=== PATIENT | male | born 1995 | race Asian ===

== ENCOUNTER 2016-10-06 08:36 | Emergency (ER) | payer OTHER ==
[~2016-10-06] VITALS: Ht 180.3 cm; Wt 81.6 kg
[2016-10-06 08:42] VITALS: TEMP 97.9
[2016-10-06 09:30] VITALS: BP 130/70
== END 2016-10-06 09:30 | disposition home or self-care (01) ==
LOC: ED 08:36
PROC: 0HQ1XZZ Repair Face Skin, External Approach (ICD-10-PCS; principal; 2016-10-06)
DX: R55 Syncope and collapse (principal); S01.112A Laceration without foreign body of left eyelid and periocular area, initial encounter; W19.XXXA Unspecified fall, initial encounter; Y92.239 Unspecified place in hospital as the place of occurrence of the external cause
CPT/HCPCS: 82962; 99282

== ENCOUNTER 2019-06-20 08:01 | Outpatient (CLI) | payer OTHER | END 2019-06-20 08:11 | disposition short-term general hospital (02) | LOC: AMB 08:01 | DX: S01.81XA Laceration without foreign body of other part of head, initial encounter (principal); V89.2XXA Person injured in unspecified motor-vehicle accident, traffic, initial encounter; Y92.89 Other specified places as the place of occurrence of the external cause | CPT/HCPCS: A0425; A0429 ==

== ENCOUNTER 2019-06-20 08:19 | Emergency (ER) | payer OTHER ==
[~2019-06-20] VITALS: Ht 182.9 cm; Wt 95.3 kg
[2019-06-20 08:19] VITALS: TEMP 99.7
[2019-06-20 09:07] LABS: PLATELET COUNT 224 K/uL (142-355); POTASSIUM 3.5 mmol/L (3.6-5.2)
[2019-06-20 10:42] VITALS: BP 160/77
== END 2019-06-20 10:43 | disposition home or self-care (01) ==
LOC: ED 08:19
PROVIDERS: Family Medicine
DX: S00.01XA Abrasion of scalp, initial encounter (principal); S00.93XA Contusion of unspecified part of head, initial encounter; S39.012A Strain of muscle, fascia and tendon of lower back, initial encounter; E87.6 Hypokalemia; V89.0XXA Person injured in unspecified motor-vehicle accident, nontraffic, initial encounter
CPT/HCPCS: 80053; 81000; 85027; 96360; 99283; 99284; J1885